=== PATIENT | female | born 1940 | race Caucasian/White ===

== ENCOUNTER 2016-12-06 12:50 | Inpatient (IN) | payer OTHER ==
[~2016-12-06] VITALS: Ht 175.3 cm; Wt 58.9 kg
[~2016-12-06 12:50] MED LIST: ATENOLOL100 MG PO; ATIVAN0.5 MG PO; BENAZEPRIL HCL40 MG PO; LOVASTATIN40 MG PO; METFORMIN HCL500 MG PO
[2016-12-06 14:50] LABS: MCH 29.6 PG (29.0-34.0); MCHC 31.1 G/DL (30.0-36.0); MCV 95.1 FL (83-99); MEAN PLAT.VOLUME 9.7 uM^3 (9.5-12.4); RBC DIS.WIDTH-CV 12.7 % (11.8-14.6); RED BLOOD COUNT 3.68 M/uL (3.80-5.20); WHITE BLOOD COUNT 14.9 K/uL (4.1-10.2)
[2016-12-06 14:51] LABS: PLATELET COUNT 159 K/uL (156-360)
[2016-12-06 14:59] LABS: CHLORIDE 106 mEq/L (99-109); POTASSIUM 4.8 mEq/L (3.7-5.4); SODIUM 140 mEq/L (136-147)
[2016-12-06 15:01] LABS: GLUCOSE 168 mg/dL (70-99)
[2016-12-06 15:03] LABS: ANION GAP 7 MEQ/L (2-14)
[2016-12-06 15:05] LABS: GFR ESTIMATE (CALCULATED) 57 mL/min/
[2016-12-06 15:06] LABS: UREA NITROGEN (BUN) 14 mg/dL (9-23)
[2016-12-06 15:10] LABS: POINT-OF-CARE METER ID UU14100415
[2016-12-06 15:11] LABS: TROP-I INTERPRETATION NEGATIVE; TROPONIN-I < 0.01 ng/mL (0.0-0.30)
[2016-12-06 16:11] LABS: ADD MIUA? YES; BILIRUBIN NEGATIVE; BLOOD NEGATIVE; COLOR YELLOW ((YELLOW)); GLUCOSE (STRIP) NEGATIVE; KETONES NEGATIVE; LEUKOCYTES TRACE; NITRITE NEGATIVE; PROTEIN (STRIP) 30; UROBILINOGEN 0.2 MG/DL (0.2-1.0)
[2016-12-06 16:20] LABS: BACTERIA RARE /HPF; EPITHELIAL CELLS RARE /HPF; HYALINE CASTS 0-5 /LPF; MUCUS TRACE /LPF; RED BLOOD CELLS 0-5 /HPF (0-5); UCUL ADDED? NO; WHITE BLOOD CELLS 0-5 /HPF (0-5)
[2016-12-06 18:22] VITALS: BP 160/80
[2016-12-06 19:58] VITALS: BP 129/72
[2016-12-06 20:12] VITALS: BP 131/87
[2016-12-06 21:01] LABS: POINT-OF-CARE METER ID UU13113698
[2016-12-06 23:22] VITALS: BP 96/55
[2016-12-07 01:13] LABS: TROP-I INTERPRETATION NEGATIVE; TROPONIN-I < 0.01 ng/mL (0.0-0.30)
[2016-12-07 04:12] VITALS: BP 109/56
[2016-12-07 05:45] LABS: EOSINOPHIL (%) 0.6 % (0-5); EOSINOPHIL COUNT 0.1 K/uL (0-0.3); HEMATOCRIT 28.6 % (36.0-46.0); IMMATURE GRANULOCYTE (%) 0.4 % (0.0-0.7); INSTRUMENT ABS NEUTROPHIL CT 6.1 K/uL; LYMPHOCYTE COUNT 2.4 K/uL (1.0-2.8); MCH 29.9 PG (29.0-34.0); MCHC 31.5 G/DL (30.0-36.0); MEAN PLAT.VOLUME 9.9 uM^3 (9.5-12.4); MONOCYTE (%) 12.2 % (3-12); MONOCYTE COUNT 1.2 K/uL (0-0.8); NEUTROPHIL (%) 62.3 % (45-76); NEUTROPHIL COUNT 6.1 K/uL (1.8-6.4); PLATELET COUNT 140 K/uL (156-360); RBC DIS.WIDTH-CV 12.7 % (11.8-14.6); RBC DIS.WIDTH-SD 44.1 % (39-53); RED BLOOD COUNT 3.01 M/uL (3.80-5.20); WHITE BLOOD COUNT 9.8 K/uL (4.1-10.2)
[2016-12-07 06:14] LABS: TROP-I INTERPRETATION NEGATIVE; TROPONIN-I < 0.01 ng/mL (0.0-0.30)
[2016-12-07 06:35] LABS: ALKALINE PHOSPHATASE 31 IU/L (3-129); ANION GAP 6 MEQ/L (2-14); CHLORIDE 103 MEQ/L (99-109); DIRECT BILIRUBIN 0.1 mg/dL (0.0-0.3); GFR ESTIMATE (CALCULATED) > 59 mL/min/; POTASSIUM 4.3 MEQ/L (3.7-5.4); SAMPLE HEMOLYSIS CHECK 0; SAMPLE ICTERIC CHECK 0; SAMPLE LIPEMIA CHECK 0; SODIUM 137 MEQ/L (136-147); TOTAL BILIRUBIN 0.4 MG/DL (0.0-1.0); UREA NITROGEN (BUN) 18 mg/dL (9-23)
[2016-12-07 06:39] LABS: GLUCOSE 104 mg/dL (70-99)
[2016-12-07 09:02] VITALS: BP 141/67
[2016-12-07 12:24] VITALS: BP 106/57
[2016-12-07 15:34] VITALS: BP 98/53
[2016-12-07 20:31] VITALS: BP 129/60
[2016-12-07 22:27] VITALS: BP 146/74
[2016-12-08 04:34] VITALS: BP 95/48
[2016-12-08 07:29] VITALS: BP 109/56
[2016-12-08 13:16] VITALS: BP 90/53
[2016-12-08 16:51] VITALS: BP 138/61
[2016-12-08 19:49] VITALS: BP 110/53
[2016-12-08 23:08] VITALS: BP 102/51
[2016-12-09 04:02] VITALS: BP 105/65
[2016-12-09 08:42] VITALS: BP 124/58
[2016-12-09 11:36] VITALS: BP 103/52
[2016-12-09 15:55] VITALS: BP 111/54
[2016-12-09 20:20] VITALS: BP 126/60
[2016-12-09 23:58] VITALS: BP 101/55
[2016-12-10] VITALS (12 sets, daily range): BP systolic 102–153; BP diastolic 54–71
[2016-12-10 06:35] LABS: HEMATOCRIT 26.4 % (36.0-46.0); MCH 29.8 PG (29.0-34.0); MCHC 31.8 G/DL (30.0-36.0); MCV 93.6 FL (83-99); MEAN PLAT.VOLUME 10.4 uM^3 (9.5-12.4); PLATELET COUNT 133 K/uL (156-360); RBC DIS.WIDTH-CV 12.8 % (11.8-14.6); RBC DIS.WIDTH-SD 43.6 % (39-53); RED BLOOD COUNT 2.82 M/uL (3.80-5.20); WHITE BLOOD COUNT 9.1 K/uL (4.1-10.2)
[2016-12-10 07:40] LABS: ALKALINE PHOSPHATASE 37 IU/L (3-129); ANION GAP 8 MEQ/L (2-14); CHLORIDE 103 MEQ/L (99-109); GFR ESTIMATE (CALCULATED) > 59 mL/min/; GLUCOSE 96 mg/dL (70-99); POTASSIUM 4.2 MEQ/L (3.7-5.4); SAMPLE HEMOLYSIS CHECK 0; SAMPLE ICTERIC CHECK 0; SAMPLE LIPEMIA CHECK 0; SODIUM 138 MEQ/L (136-147); UREA NITROGEN (BUN) 25 mg/dL (9-23)
[2016-12-10 07:48] LABS: TOTAL BILIRUBIN 0.5 MG/DL (0.0-1.0)
[2016-12-10 08:01] LABS: POINT-OF-CARE USER ID NUTSLF44
[2016-12-11 00:51] VITALS: BP 122/59
[2016-12-11 04:01] VITALS: BP 133/70
[2016-12-11 07:14] VITALS: BP 145/65
[2016-12-11 07:24] LABS: HEMATOCRIT 33.8 % (36.0-46.0); MCH 29.8 PG (29.0-34.0); MCHC 33.4 G/DL (30.0-36.0); MCV 89.2 FL (83-99); MEAN PLAT.VOLUME 9.8 uM^3 (9.5-12.4); PLATELET COUNT 136 K/uL (156-360); RBC DIS.WIDTH-CV 13.7 % (11.8-14.6); RED BLOOD COUNT 3.79 M/uL (3.80-5.20); WHITE BLOOD COUNT 11.8 K/uL (4.1-10.2)
[2016-12-11 08:00] LABS: POINT-OF-CARE METER ID UU13113698
[2016-12-11 11:21] VITALS: BP 110/54
[2016-12-11 16:08] VITALS: BP 132/61
[2016-12-11 20:57] VITALS: BP 141/62
[2016-12-12 00:36] VITALS: BP 111/57
[2016-12-12 08:00] VITALS: BP 118/76
[2016-12-12 16:00] VITALS: BP 121/64
[2016-12-12 23:43] VITALS: BP 110/59
[2016-12-13 06:26] LABS: POINT-OF-CARE METER ID UU14208750
[2016-12-13 07:40] VITALS: BP 116/62
[2016-12-13] MEDS ORDERED: ASPIR-LOW81 MG PO (13:43)
[2016-12-13] MEDS ORDERED: TRAMADOL HCL50 MG PO (13:44)
[2016-12-13] MEDS ORDERED: LORAZEPAM0.5 MG PO (13:45)
== END 2016-12-13 15:00 | DRG 536 ==
LOC: EME 12:50 → 4EAST 16:21 → EDOF 16:21 → 4EAST 18:15 → 2EAST 12-11 20:27
PROVIDERS: Emergency Medicine; Family Medicine; Internal Medicine
PROC: 30233N1 Transfusion of Nonautologous Red Blood Cells into Peripheral Vein, Percutaneous Approach (ICD-10-PCS; principal; 2016-12-10)
DX: S32.501A Unspecified fracture of right pubis, initial encounter for closed fracture (principal); S32.502A Unspecified fracture of left pubis, initial encounter for closed fracture; S42.212A Unspecified displaced fracture of surgical neck of left humerus, initial encounter for closed fracture; W18.30XA Fall on same level, unspecified, initial encounter; D64.9 Anemia, unspecified; R55 Syncope and collapse; R94.31 Abnormal electrocardiogram [ECG] [EKG]; I10 Essential (primary) hypertension; E11.9 Type 2 diabetes mellitus without complications; E78.5 Hyperlipidemia, unspecified; E88.09 Other disorders of plasma-protein metabolism, not elsewhere classified; K59.00 Constipation, unspecified; F41.9 Anxiety disorder, unspecified; M19.90 Unspecified osteoarthritis, unspecified site; R29.6 Repeated falls; Z79.84 Long term (current) use of oral hypoglycemic drugs
CPT/HCPCS: 71010; 73030; 73080; 73090; 74176; 80048; 80053; 80076; 81003; 82948; 84484; 85025; 85027; 86900; 86901; 86920; 93005; 94799; 97530 GO; 97530 GP; 99281; 99285; G0378; G8978 GP CM; G8979 GP CK; G8987 GO CL; G8988 GO CK; J1650; J7030; J7040; P9016